=== PATIENT | male | born 1995 | race Caucasian/White ===

== ENCOUNTER 2024-02-29 05:36 | Emergency (ER) | payer SELFPAY ==
[~2024-02-29] VITALS: Ht 162.6 cm; Wt 54.0 kg
[2024-02-29 05:45] VITALS: O2SAT 100
[2024-02-29] MEDS: ACETAMINOPHEN 325MG TABLET PO STA (06:21)
[2024-02-29 08:20] VITALS: BP 128/71; PULSE 81; RESP 18; TEMP 37.00296; O2SAT 100
== END 2024-02-29 08:21 | disposition home or self-care (01) ==
LOC: ER 05:36
DX: S20.212A Contusion of left front wall of thorax, initial encounter (principal); S09.90XA Unspecified injury of head, initial encounter; F41.9 Anxiety disorder, unspecified; Y08.89XA Assault by other specified means, initial encounter; Y93.89 Activity, other specified; Y92.89 Other specified places as the place of occurrence of the external cause; Y99.8 Other external cause status
CPT/HCPCS: 71101; 99284